=== PATIENT | female | born 1960 | race Caucasian/White ===

== ENCOUNTER 2016-07-29 18:24 | Emergency (ER) | payer OTHER, MEDICAID ==
[~2016-07-29] VITALS: Ht 157.5 cm; Wt 66.1 kg
[~2016-07-29 18:24] MED LIST: ATOR20TA9 PO; CYCL5TAB PO; DULO60CA7 PO; FENO130C6 PO; HYDR20TA19 PO; PREG100C PO; TRAM50TA2 PO
[2016-07-29 18:49] LABS: HEMOGLOBIN 13.5 g/dL (11.7-16.4)
[2016-07-29 19:00] LABS: ASPARTATE AMINO TRANSFERASE 15 U/L (15-37); BLOOD UREA NITROGEN 16 mg/dL (7-18)
[2016-07-29] MEDS ORDERED: FAMOTIDINE 20 MG/2 ML IVP ONE (19:00)
[2016-07-29] MEDS ORDERED: ONDANSETRON 2MG/ML, 2ML IVPush ONE (19:00)
[2016-07-29] MEDS ORDERED: SODIUM CHLORIDE FLUSH 10ML SYR IVF ONE (19:00)
[2016-07-29] MEDS ORDERED: SODIUM CHLORIDE 0.9% 1,000ML IVBOLUS ONE (19:00)
[2016-07-29] MEDS ORDERED: MORPHINE SULFATE 4 MG/ML, 1ML IVPush PRN (19:00)
[2016-07-29] MEDS ORDERED: MORPHINE SULFATE 4 MG/ML, 1ML ONE (19:18)
[2016-07-29] MEDS ORDERED: ONDANSETRON 2MG/ML, 2ML ONE (19:18)
[2016-07-29] MEDS ORDERED: FAMOTIDINE 20 MG/2 ML ONE (19:19)
[2016-07-29] MEDS ORDERED: MAALOX/HYOSCYAMINE/LIDOCAINE 45 ML BOTTLE PO ONE (20:00)
[2016-07-29 20:35] LABS: PATH.CAST-FLAG NOT PRESENT; SPERM-FLAG NOT PRESENT; SRC-FLAG NOT PRESENT; XTAL-FLAG NOT PRESENT; YLC-FLAG NOT PRESENT
[2016-07-29] MEDS ORDERED: OMNIPAQUE 350 MG/ML, 100ML BOTTLE ONE (20:41)
[2016-07-29 21:45] VITALS: BP 115/71
== END 2016-07-29 21:47 | disposition home or self-care (01) ==
LOC: ED 20:26
DX: N39.0 Urinary tract infection, site not specified (principal); R11.0 Nausea; R10.13 Epigastric pain; R10.11 Right upper quadrant pain; Z90.710 Acquired absence of both cervix and uterus
CPT/HCPCS: 36415; 74177; 76700; 80053; 81001; 83690; 85025; 86677; 87086; 96361; 96374; 96375; 99285; J2405; J7030; Q9967; 87077; S0028

== ENCOUNTER 2016-10-08 11:27 | Emergency (ER) | payer MEDICAID, OTHER ==
[~2016-10-08] VITALS: Ht 157.5 cm; Wt 65.4 kg
[2016-10-08] MEDS ORDERED: HYDROcodone/APAP 5/325 TABLET ONE (12:40)
[2016-10-08] MEDS ORDERED: ALBUTEROL/IPRATROPIUM 2.5MG/0.5MG, 3 ML NPPB ONE (13:00)
[2016-10-08] MEDS ORDERED: HYDROcodone/APAP 5/325 TABLET PO ONE (13:00)
[2016-10-08] MEDS ORDERED: ALBUTEROL/IPRATROPIUM 2.5MG/0.5MG, 3 ML ONE (13:05)
[2016-10-08 13:11] LABS: BLOOD UREA NITROGEN 13 mg/dL (7-18)
[2016-10-08] MEDS ORDERED: SODIUM CHLORIDE 0.9% 1,000ML IVBOLUS ONE (14:00)
[2016-10-08] MEDS ORDERED: SODIUM CHLORIDE FLUSH 10ML SYR IVF ONE (14:00)
[2016-10-08] MEDS ORDERED: METOCLOPRAMIDE 5 MG/ML, 2ML ONE (14:20)
[2016-10-08] MEDS ORDERED: DIPHENHYDRAMINE 50 MG/ML, 1ML ONE (14:20)
[2016-10-08 14:35] VITALS: BP 139/78
[2016-10-08] MEDS ORDERED: METOCLOPRAMIDE 5 MG/ML, 2ML IVPush ONE (15:30)
[2016-10-08] MEDS ORDERED: DIPHENHYDRAMINE 50 MG/ML, 1ML IVPush ONE (15:30)
== END 2016-10-08 15:36 | disposition home or self-care (01) ==
LOC: ED 15:30
DX: J20.8 Acute bronchitis due to other specified organisms (principal); B97.89 Other viral agents as the cause of diseases classified elsewhere; R51 Headache; Z90.710 Acquired absence of both cervix and uterus; F17.200 Nicotine dependence, unspecified, uncomplicated
CPT/HCPCS: 36415; 70450; 71020; 80048; 82040; 85025; 94640; 96361; 96374; 96375; 99285; J1200; J2765; J7030; J7620

== ENCOUNTER → 2016-12-22 | Outpatient (CLI) | payer OTHER, MEDICAID | END | disposition home or self-care (01) | LOC: RAD 16:56 | PROVIDERS: ATTEND Family Medicine | DX: R10.9 Unspecified abdominal pain (principal); M54.9 Dorsalgia, unspecified | CPT/HCPCS: 76770 ==

== ENCOUNTER 2016-12-28 09:27 | Emergency (ER) | payer OTHER, MEDICAID ==
[~2016-12-28] VITALS: Ht 157.5 cm; Wt 60.4 kg
[2016-12-28] MEDS ORDERED: HYDR200T PO (10:43)
[2016-12-28] MEDS ORDERED: MYCO500T3 PO (10:44)
[2016-12-28] MEDS ORDERED: MULT-308 PO (10:45)
[2016-12-28] MEDS ORDERED: CYAN50008 PO (10:45)
[2016-12-28] MEDS ORDERED: SODIUM CHLORIDE 0.9% 1,000ML IV ONE (11:30)
[2016-12-28] MEDS ORDERED: ONDANSETRON 2MG/ML, 2ML IVPush ONE (11:30)
[2016-12-28] MEDS ORDERED: SODIUM CHLORIDE FLUSH 10ML SYR IVF ONE (11:30)
[2016-12-28] MEDS ORDERED: ONDANSETRON 2MG/ML, 2ML ONE (11:46)
[2016-12-28] MEDS ORDERED: HYDROmorphone 1 MG/ML, 1ML ONE ×2 (11:46→12:49)
[2016-12-28 11:49] LABS: HEMATOCRIT 34.3 % (34.6-47.8); HEMOGLOBIN 11.8 g/dL (11.7-16.4); WHITE BLOOD COUNT 4.2 x10^3/uL (3.4-10)
[2016-12-28] MEDS: HYDROmorphone 1 MG/ML, 1ML IVPush PRN ×2 (11:57→12:51)
[2016-12-28 11:59] LABS: BLOOD UREA NITROGEN 7 mg/dL (7-18)
[2016-12-28] MEDS ORDERED: CIPROFLOXACIN/PMX 400MG/200ML 200 ML ONE (12:27)
[2016-12-28] MEDS ORDERED: CIPROFLOXACIN/PMX 400MG/200ML 200 ML IV ONE (12:30)
[2016-12-28 12:51] VITALS: BP 119/72
== END 2016-12-28 14:06 | disposition home or self-care (01) ==
LOC: ED 11:46
DX: N30.01 Acute cystitis with hematuria (principal); F17.200 Nicotine dependence, unspecified, uncomplicated; Z90.710 Acquired absence of both cervix and uterus
CPT/HCPCS: 36415; 74176; 80048; 81001; 82040; 85025; 87086; 96361; 96365; 96375; 96376; 99285; J0744; J1170; J2405; J7030

== ENCOUNTER → 2017-02-19 | Outpatient (CLI) | payer OTHER, MEDICAID ==
[~2017-02-19] MED LIST changes: +CYAN50008 PO; +HYDR200T PO; +MULT-308 PO; +MYCO500T3 PO
== END | disposition home or self-care (01) ==
LOC: CFH 13:13
PROVIDERS: ATTEND Nurse Practitioner Primary Care
DX: N63.20 Unspecified lump in the left breast, unspecified quadrant (principal); Z80.3 Family history of malignant neoplasm of breast
CPT/HCPCS: 76641; G0206

== ENCOUNTER → 2017-02-19 | Outpatient (CLI) | payer OTHER, MEDICAID | LOC: STAR 12:02 | PROVIDERS: ATTEND Colon & Rectal Surgery | DX: Z02.9 Encounter for administrative examinations, unspecified (principal) ==

== ENCOUNTER 2017-02-26 09:08 | Day surgery (SDC) | payer OTHER, MEDICAID ==
[~2017-02-26] VITALS: Ht 157.5 cm; Wt 53.2 kg
[2017-02-26] MEDS ORDERED: LACTATED RINGERS 1,000 ML IV SCH (09:38)
[2017-02-26 09:59] VITALS: BP 108/69
[2017-02-26] MEDS ORDERED: FENTANYL PF 100 MCG/2ML ONE ×4 (10:28→11:54)
[2017-02-26] MEDS ORDERED: MIDAZOLAM 1 MG/ML, 2ML ONE (10:28)
[2017-02-26] MEDS ORDERED: ROCURONIUM 10MG/ML,5ML ONE ×2 (10:29→11:09)
[2017-02-26] MEDS ORDERED: BUPIVACAINE/PF 0.5% ONE (10:45)
[2017-02-26] MEDS ORDERED: EPINEPHRINE 1 MG/ML, 1ML ONE (10:45)
[2017-02-26] MEDS ORDERED: ONDANSETRON 2MG/ML, 2ML ONE (10:58)
[2017-02-26] MEDS ORDERED: NEOSTIGMINE 1 MG/ML, 10ML ONE ×2 (10:58→11:18)
[2017-02-26] MEDS ORDERED: CLINDAMYCIN 150 MG/ML, 6ML ONE (10:58)
[2017-02-26] MEDS ORDERED: DEXAMETHASONE 4 MG/ML, 1ML ONE ×2 (11:09)
[2017-02-26] MEDS ORDERED: PROPOFOL 10 MG/ML, 20ML ONE (11:09)
[2017-02-26] MEDS ORDERED: EPHEDRINE 50 MG/ML, 1ML ONE (11:13)
[2017-02-26] MEDS ORDERED: GLYCOPYRROLATE 0.4 MG/2 ML, 2ML ONE (11:18)
[2017-02-26] MEDS ORDERED: KETOROLAC 30 MG/1 ML ONE ×2 (11:20→11:41)
[2017-02-26] MEDS ORDERED: ONDANSETRON 2MG/ML, 2ML IVPush PRN (11:30)
[2017-02-26] MEDS ORDERED: MEPERIDINE/PF 25MG/0.5ML IVPush PRN (11:30)
[2017-02-26] MEDS ORDERED: ACETAMINOPHEN 325 MG TABLET PO PRN ×2 (11:30→12:30)
[2017-02-26] MEDS ORDERED: PROMETHAZINE 25 MG/ML, 1ML IV PRN (11:30)
[2017-02-26] MEDS ORDERED: OXYcodone 5 MG/5 ML ORAL.SOL UDC PO PRN (11:30)
[2017-02-26] MEDS ORDERED: LABETALOL 5MG/ML, 20ML IV PRN (11:30)
[2017-02-26] MEDS ORDERED: HYDROmorphone 1 MG/ML, 1ML ONE ×2 (11:41→12:09)
[2017-02-26] MEDS ORDERED: ACETAMINOPHEN 650 MG/20.3 ML UDC ONE (11:41)
[2017-02-26] MEDS ORDERED: OXYcodone 5 MG/5 ML ORAL.SOL UDC ONE (11:42)
[2017-02-26] MEDS: FENTANYL PF 100 MCG/2ML IV PRN ×4 (11:45→12:06)
[2017-02-26] MEDS: HYDROmorphone 1 MG/ML, 1ML IV PRN ×3 (11:46→12:12)
[2017-02-26] MEDS ORDERED: MEPERIDINE/PF 25MG/0.5ML ONE (11:54)
[2017-02-26] MEDS ORDERED: KETOROLAC 30 MG/1 ML IVPush ONE (12:00)
[2017-02-26] MEDS ORDERED: PROMETHAZINE 25 MG/ML, 1ML ONE (12:08)
== END 2017-02-26 13:40 ==
LOC: OUT 09:08
PROVIDERS: ATTEND Colon & Rectal Surgery
DX: K81.1 Chronic cholecystitis (principal); Z98.890 Other specified postprocedural states; Z90.710 Acquired absence of both cervix and uterus
CPT/HCPCS: 47562; 88304; J0171; J1100; J1170; J1885; J2175; J2250; J2405; J2550; J2704; J2710; J3010; J3490; J7120

== ENCOUNTER 2018-03-02 15:55 | Inpatient (IN) | payer MEDICAID, OTHER ==
[~2018-03-02] VITALS: Ht 157.5 cm; Wt 49.9 kg
[~2018-03-02 15:55] MED LIST changes: -HYDR200T PO; +HYDR200T72 PO
[2018-03-02 16:52] LABS: BASOPHILS # (AUTO) 0.04 x10^3/uL (0-0.1); BASOPHILS % (AUTO) 0 % (0-1); EOSINOPHILS # (AUTO) 0.08 x10^3/uL (0-0.4); EOSINOPHILS % (AUTO) 1 % (1-7); LYMPHOCYTES % (AUTO) 17 % (22-44); MD NO; MEAN CORPUSCULAR HEMOGLOBIN 33.4 pg (27.0-34.8); MEAN CORPUSCULAR HGB CONC 34.9 g/dL (32.4-35.8); MEAN CORPUSCULAR VOLUME 95.8 fL (80-100); MEAN PLATELET VOLUME 8.3 fL (7.4-10.4); MONOCYTES # (AUTO) 1.09 x10^3/uL (0.2-0.8); MONOCYTES % (AUTO) 8 % (2-9); NEUTROPHILS % (AUTO) 74 % (42-75); PLATELET COUNT 318 x10^3/uL (130-400); RED BLOOD COUNT 3.99 x10^6/uL (3.82-5.3); RED CELL DISTRIBUTION WIDTH 11.9 % (9.6-15.2)
[2018-03-02 17:04] LABS: ANION GAP 8 mmol/L (5-15); CHLORIDE 102 mmol/L (98-107); CREATININE 0.83 mg/dL (0.55-1.02)
[2018-03-02] MEDS ORDERED: IBUPROFEN 200 MG TABLET ONE (17:45)
[2018-03-02] MEDS ORDERED: IBUPROFEN 200 MG TABLET PO ONE (18:00)
[2018-03-02 18:20] LABS: RAPID INFLUENZA A Negative (Negative); RAPID INFLUENZA B Negative (Negative)
[2018-03-02] MEDS ORDERED: OMNIPAQUE 350 MG/ML, 100ML BOTTLE ONE (18:30)
[2018-03-02] MEDS ORDERED: SODIUM CHLORIDE 0.9% 1,000 ML IV ONE (18:45)
[2018-03-02] MEDS ORDERED: PIPERACILLIN/TAZO/PMX 3.375GM 50 ML ONE (18:56)
[2018-03-02] MEDS ORDERED: KETOROLAC 30 MG/1 ML ONE (18:56)
[2018-03-02] MEDS ORDERED: PIPERACILLIN/TAZO/PMX 3.375GM 50 ML IVPB ONE (19:00)
[2018-03-02] MEDS ORDERED: KETOROLAC 30 MG/1 ML IVPush ONE (19:00)
[2018-03-02] MEDS ORDERED: SODIUM CHLORIDE 0.9% 1,000ML IVBOLUS ONE ×2 (19:00→20:00)
[2018-03-02 20:38] LABS: CULTURE INDICATED? YES; MICROSCOPIC INDICATED
[2018-03-02] MEDS ORDERED: morphine SULFATE 10 MG/ML, 1ML IVPush PRN (21:00)
[2018-03-02] MEDS ORDERED: PROMETHAZINE 25 MG/ML, 1ML IM PRN (21:00)
[2018-03-02] MEDS ORDERED: CEFTRIAXONE PMX 2GM/50ML 50 ML IV SCH (21:00)
[2018-03-02] MEDS: NICOTINE 7 MG/24 HR PATCH.TD24 TD SCH (21:00)
[2018-03-02] MEDS ORDERED: ONDANSETRON 2MG/ML, 2ML IVPush PRN (21:00)
[2018-03-02] MEDS ORDERED: ACETAMINOPHEN 325 MG TABLET PO PRN (21:00)
[2018-03-02] MEDS ORDERED: hydrALAzine 20 MG/ML, 1ML IVPush PRN (21:00)
[2018-03-02] MEDS ORDERED: BISACODYL 10 MG SUPP PR PRN (21:00)
[2018-03-02] MEDS ORDERED: DOXYCYCLINE 100 MG in DEXTROSE 5% 250 ML IV SCH (21:00)
[2018-03-02] MEDS ORDERED: DOCUSATE 100 MG CAPSULE PO PRN (21:00)
[2018-03-02] MEDS ORDERED: LABETALOL 5MG/ML, 20ML IVPush PRN (21:00)
[2018-03-02] MEDS ORDERED: ONDANSETRON ODT 4 MG PO PRN (21:00)
[2018-03-02] MEDS ORDERED: POLYETHYLENE GLYCOL 17 GM PACKET PO PRN (21:00)
[2018-03-02 21:16] LABS: FREE T4 (FREE THYROXINE) 1.02 ng/dL (0.76-1.46); THYROID STIMULATING HORMONE 1.01 mIU/L (0.358-3.740)
[2018-03-02 21:20] VITALS: BP 114/80
[2018-03-02 21:21] LABS: HEMOGLOBIN A1C 5.4 % (4.2-6.3)
[2018-03-02] MEDS: SODIUM CHLORIDE 0.9% 1,000 ML IV SCH (21:51)
[2018-03-02] MEDS: HEPARIN 5,000 UNITS/ML, 1ML SQ SCH (21:55)
[2018-03-02] MEDS: AMPICILLIN/SULBACTAM 3 GM in SODIUM CHLORIDE 0.9% 100 ML IV SCH (23:21)
[2018-03-03 01:48] VITALS: BP 115/66
[2018-03-03] MEDS ORDERED: ALBUTEROL SULFATE 2.5 MG/3 ML NPPB PRN (02:00)
[2018-03-03] MEDS: SODIUM CHLORIDE 0.9% 1,000 ML IV SCH ×2 (04:43→11:30)
[2018-03-03] MEDS: AMPICILLIN/SULBACTAM 3 GM in SODIUM CHLORIDE 0.9% 100 ML IV SCH ×2 (04:57→10:53)
[2018-03-03] MEDS: HEPARIN 5,000 UNITS/ML, 1ML SQ SCH ×3 (04:57→20:37)
[2018-03-03 05:27] LABS: BASOPHILS # (AUTO) 0.04 x10^3/uL (0-0.1); BASOPHILS % (AUTO) 1 % (0-1); EOSINOPHILS % (AUTO) 2 % (1-7); LYMPHOCYTES % (AUTO) 26 % (22-44); MD NO; MEAN CORPUSCULAR HEMOGLOBIN 33.5 pg (27.0-34.8); MEAN CORPUSCULAR HGB CONC 34.7 g/dL (32.4-35.8); MEAN CORPUSCULAR VOLUME 96.5 fL (80-100); MEAN PLATELET VOLUME 8.7 fL (7.4-10.4); MONOCYTES # (AUTO) 0.77 x10^3/uL (0.2-0.8); MONOCYTES % (AUTO) 9 % (2-9); NEUTROPHILS % (AUTO) 62 % (42-75); PLATELET COUNT 221 x10^3/uL (130-400); RED BLOOD COUNT 3.26 x10^6/uL (3.82-5.3); RED CELL DISTRIBUTION WIDTH 12.2 % (9.6-15.2)
[2018-03-03 05:44] LABS: CALCIUM 7.8 mg/dL (8.5-10.1); CHLORIDE 113 mmol/L (98-107)
[2018-03-03 05:49] LABS: ALANINE AMINOTRANSFERASE 23 U/L (12-78); ALKALINE PHOSPHATASE 67 U/L (45-117); ANION GAP 5 mmol/L (5-15); BILIRUBIN,TOTAL 0.4 mg/dL (0.2-1.0); CHOL/HDL RATIO 5.1; CHOLESTEROL, TOTAL 154 mg/dL (140-239); CREATININE 0.66 mg/dL (0.55-1.02); HDL CHOL % 19 % (28-40); HDL CHOLESTEROL (DIRECT) 30 mg/dL (40-60); LDL CHOLESTEROL,CALCULATED 100 mg/dL (54-169); LDL/HDL RATIO 3.3 (0.5-3.0); TOTAL PROTEIN 6.3 g/dL (6.4-8.2); TRIGLYCERIDES 120 mg/dL (50-200); VLDL CHOLESTEROL 24 mg/dL (0-25)
[2018-03-03 07:50] VITALS: BP 109/56
[2018-03-03] MEDS: PANTOPRAZOLE 40 MG IV IVPush SCH (08:17)
[2018-03-03] MEDS: DULOXETINE 30 MG CAPSULE.DR PO SCH (08:17)
[2018-03-03] MEDS: methylPREDNISolone SOD SUCC 125 MG/2 ML IV SCH ×2 (11:00→20:41)
[2018-03-03] MEDS ORDERED: LEVOFLOXACIN/PMX 750MG/150ML 150 ML IV SCH (11:30)
[2018-03-03] MEDS: GUAIFENESIN ER 600 MG TABLET PO SCH ×2 (11:47→20:37)
[2018-03-03] MEDS: HYDROcodone/CHLORPHENIR ORAL SUSP PO PRN ×2 (11:48→23:58)
[2018-03-03] MEDS: KETOROLAC 30 MG/1 ML IVPush SCH ×3 (11:49→23:58)
[2018-03-03 12:04] VITALS: BP 114/65
[2018-03-03] MEDS: ACYCLOVIR OINT 5%, 5GM TP SCH ×4 (13:28→20:38)
[2018-03-03] MEDS: NICOTINE 7 MG/24 HR PATCH.TD24 TD SCH (20:38)
[2018-03-03 20:45] VITALS: BP 108/69
[2018-03-04 00:21] VITALS: BP 112/65
[2018-03-04] MEDS: SODIUM CHLORIDE 0.9% 1,000 ML IV SCH (05:02)
[2018-03-04] MEDS: KETOROLAC 30 MG/1 ML IVPush SCH ×2 (05:02→09:00)
[2018-03-04] MEDS: ACYCLOVIR OINT 5%, 5GM TP SCH ×2 (05:02→09:58)
[2018-03-04] MEDS: HEPARIN 5,000 UNITS/ML, 1ML SQ SCH (05:02)
[2018-03-04] MEDS: methylPREDNISolone SOD SUCC 125 MG/2 ML IV SCH (07:00)
[2018-03-04 08:00] VITALS: BP 110/70
[2018-03-04] MEDS ORDERED: ACYC15OI6 TP (08:26)
[2018-03-04] MEDS ORDERED: SULF1TAB24 PO (08:26)
[2018-03-04] MEDS: PANTOPRAZOLE 40 MG IV IVPush SCH (09:58)
[2018-03-04] MEDS: GUAIFENESIN ER 600 MG TABLET PO SCH (09:58)
[2018-03-04] MEDS: DULOXETINE 30 MG CAPSULE.DR PO SCH (09:58)
== END 2018-03-04 10:50 | disposition home or self-care (01) | DRG 872 ==
LOC: ED 18:34 → EDIP 20:17 → 4EST 20:55 → DCLOUNGE 03-04 10:47
PROVIDERS: ADMIT Internal Medicine; ATTEND Hospitalist
DX: A41.9 Sepsis, unspecified organism (principal); N39.0 Urinary tract infection, site not specified; J98.11 Atelectasis; M19.90 Unspecified osteoarthritis, unspecified site; F17.210 Nicotine dependence, cigarettes, uncomplicated; I10 Essential (primary) hypertension; B96.89 Other specified bacterial agents as the cause of diseases classified elsewhere; B00.1 Herpesviral vesicular dermatitis; J20.9 Acute bronchitis, unspecified; R09.1 Pleurisy; D64.9 Anemia, unspecified; Z80.3 Family history of malignant neoplasm of breast; Z88.5 Allergy status to narcotic agent; Z90.49 Acquired absence of other specified parts of digestive tract; Z79.899 Other long term (current) drug therapy
CPT/HCPCS: 36415; 71046; 71275; 80048; 80053; 80061; 81001; 83036; 83605; 83735; 84145; 84439; 84443; 85025; 87040; 87070; 87077; 87086; 87186; 87205; 87400; 93005; 96365; 96375; G0378; J0295; J1644; J1885; J1956; J2405; J2543; J7060; Q9967; C9113; J7030

== ENCOUNTER → 2018-04-13 | Outpatient (CLI) | payer OTHER ==
[~2018-04-13] MED LIST changes: +ACYC15OI6 TP; +ATOR20TA37 PO; -ATOR20TA9 PO; +SULF1TAB24 PO
== END | disposition home or self-care (01) ==
LOC: CARD 12:22
PROVIDERS: ATTEND Internal Medicine Cardiovascular Disease
DX: R94.31 Abnormal electrocardiogram [ECG] [EKG] (principal); R06.02 Shortness of breath; R07.89 Other chest pain
CPT/HCPCS: 94060; 94726; 94729

== ENCOUNTER → 2018-04-16 | Outpatient (CLI) | payer OTHER ==
[~2018-04-16] MED LIST changes: +REGADENOSON 0.4 MG/5 ML SYRINGE ONE
== END | disposition home or self-care (01) ==
LOC: CFH 11:58
PROVIDERS: ATTEND Internal Medicine Cardiovascular Disease
DX: R07.89 Other chest pain (principal); R06.02 Shortness of breath; R94.31 Abnormal electrocardiogram [ECG] [EKG]; R53.83 Other fatigue
CPT/HCPCS: 78452; 93017; 93306; A9502; J2785

== ENCOUNTER 2018-08-01 09:00 | Emergency (ER) | payer SELFPAY ==
[~2018-08-01] VITALS: Ht 157.5 cm; Wt 48.7 kg
[~2018-08-01 09:00] MED LIST changes: -REGADENOSON 0.4 MG/5 ML SYRINGE ONE
[2018-08-01 09:03] VITALS: BP 125/80
--- NOTE | 2018-08-01 09:29 | NUR ---
Pt c/o cough since February. Pt requesting refill of her prednisone as well as albuterol bullets for her nebulizer.
--- NOTE | 2018-08-01 10:05 | NUR ---
Dr. Negron at bedside to discuss POC with pt.
== END 2018-08-01 10:20 | disposition home or self-care (01) ==
LOC: ED 09:56
DX: J02.9 Acute pharyngitis, unspecified (principal); F17.210 Nicotine dependence, cigarettes, uncomplicated
CPT/HCPCS: 93005; 99283

== ENCOUNTER 2018-10-14 07:25 | Emergency (ER) | payer MEDICAID ==
[~2018-10-14] VITALS: Ht 157.5 cm; Wt 46.2 kg
[2018-10-14] MEDS ORDERED: CYCLOBENZAPRINE 10 MG TABLET PO ONE (08:00)
[2018-10-14] MEDS ORDERED: KETOROLAC 30 MG/1 ML IM ONE (08:00)
[2018-10-14] MEDS ORDERED: CYCLOBENZAPRINE 10 MG TABLET ONE (08:14)
[2018-10-14] MEDS ORDERED: KETOROLAC 30 MG/1 ML ONE (08:14)
--- NOTE | 2018-10-14 08:19 | NUR ---
Went to pt room to provide medication per EMAR. Pt transported on gurney to imaging. Pt not in room at this time.
--- NOTE | 2018-10-14 08:19 | NUR ---
Late note entry for 0812: Pt having EKG at bedside.
[2018-10-14] MEDS ORDERED: CBD OIL (08:43)
[2018-10-14 08:56] LABS: BASOPHILS # (AUTO) 0.05 x10^3/uL (0-0.1); BASOPHILS % (AUTO) 0 % (0-1); EOSINOPHILS # (AUTO) 0.13 x10^3/uL (0-0.4); EOSINOPHILS % (AUTO) 1 % (1-7); LYMPHOCYTES # (AUTO) 1.66 x10^3/uL (1-3.4); LYMPHOCYTES % (AUTO) 12 % (22-44); MD NO; MEAN CORPUSCULAR HEMOGLOBIN 33.2 pg (27.0-34.8); MEAN CORPUSCULAR HGB CONC 33.9 g/dL (32.4-35.8); MEAN CORPUSCULAR VOLUME 97.7 fL (80-100); MEAN PLATELET VOLUME 8.6 fL (7.4-10.4); MONOCYTES # (AUTO) 1.13 x10^3/uL (0.2-0.8); MONOCYTES % (AUTO) 8 % (2-9); NEUTROPHILS # (AUTO) 11.29 x10^3/uL (1.8-6.8); NEUTROPHILS % (AUTO) 79 % (42-75); PLATELET COUNT 245 x10^3/uL (130-400); RED BLOOD COUNT 3.94 x10^6/uL (3.82-5.3); RED CELL DISTRIBUTION WIDTH 11.7 % (9.6-15.2)
[2018-10-14 09:00] LABS: ALBUMIN 3.9 g/dL (3.4-5.0); ANION GAP 8 mmol/L (5-15); CALCIUM 9.1 mg/dL (8.5-10.1); CHLORIDE 110 mmol/L (98-107); CREATININE 0.76 mg/dL (0.55-1.02)
--- NOTE | 2018-10-14 09:11 | NUR ---
Pt ambulates to restroom from ED room with steady gait and balance. NADN. UA cup provided.
[2018-10-14 09:24] LABS: MICROSCOPIC AUTO
[2018-10-14 09:27] LABS: CULTURE INDICATED? YES
--- NOTE | 2018-10-14 09:28 | NUR ---
Pt's urine collected and sent to lab. Pt provided concentrated yellow clear urine. Pt states, "Oh it maybe a urine infection that I just didn't know about. I have been feeling like I get a sudden urge to pee."
--- NOTE | 2018-10-14 10:04 | NUR ---
Provided report to BRAYAN Sharpe. All questions answered. BRAYAN Sharpe to assume care of pt. AMEYA.
--- NOTE | 2018-10-14 10:23 | NUR ---
PT STATING SHE IS NAUSEAS AND IS ASKING FOR CRACKERS. WILL INFORM MD.
[2018-10-14] MEDS ORDERED: ONDANSETRON ODT 4 MG ONE (10:28)
[2018-10-14] MEDS ORDERED: ONDANSETRON ODT 4 MG PO ONE (10:30)
--- NOTE | 2018-10-14 10:30 | NUR ---
PT MEDICATED PER EMAR AND UPDATED ON POC.
[2018-10-14 11:07] VITALS: BP 112/53
== END 2018-10-14 11:12 | disposition home or self-care (01) ==
LOC: ED 09:26
DX: R07.89 Other chest pain (principal); I10 Essential (primary) hypertension; R10.9 Unspecified abdominal pain; R11.2 Nausea with vomiting, unspecified; R19.7 Diarrhea, unspecified; Z90.710 Acquired absence of both cervix and uterus
CPT/HCPCS: 36415; 71101; 74176; 80048; 81001; 82040; 85025; 87086; 93005; 96372; 99284; J1885; Q0162